=== PATIENT | male | born 1955 | race Caucasian/White ===

== ENCOUNTER → 2017-11-10 | Outpatient (CLI) | payer BC ==
[2017-11-10 12:13] LABS: HCT 43.8 % (39.0-53.0); HGB 14.3 gm/dL (13.0-17.5); MCH 30.3 pg (25.0-35.0); MCHC 32.6 g/dL (31.0-37.0); Mean Platelet Volume 7.3; Platelet Count 231 k/uL (150-450); RBC 4.71 m/uL (4.30-5.90); RDW 13.4 % (11.5-15.5); WBC 5.2 k/uL (3.8-10.6)
[2017-11-10 12:27] LABS: Potassium 4.9 mmol/L (3.5-5.1)
== END | disposition home or self-care (01) ==
LOC: LABPAT 11:51
PROVIDERS: ATTEND Internal Medicine Cardiovascular Disease
DX: Z01.812 Encounter for preprocedural laboratory examination (principal); I25.119 Atherosclerotic heart disease of native coronary artery with unspecified angina pectoris; I10 Essential (primary) hypertension
CPT/HCPCS: 36415; 80051; 82565; 84520; 85027

== ENCOUNTER 2017-11-13 10:58 | Day surgery (SDC) | payer BC ==
[~2017-11-13 10:58] MED LIST: ALPRAZolam 0.25 MG TAB PO PRN; ALPRAZolam 0.5 MG TAB PO PRN; ASPIRIN 325 MG TAB PO STA; ATORVASTATIN 80 MG TAB PO STA; NITROGLYCERIN SL TABS 0.4 MG TAB SUBLINGUAL PRN; SODIUM CHLORIDE 0.9% 1,000 ML in EMPTY BAG 1 BAG IV ONE
[2017-11-13] MEDS ORDERED: fentaNYL (PF) 50 MCG/ML 2 ML AMP ONE (13:21)
[2017-11-13] MEDS ORDERED: LIDOCAINE 1% INJ 10MG/ML (20 ML MDV) ONE (13:21)
[2017-11-13] MEDS ORDERED: MIDAZOLAM 2 MG/2 ML VIAL ONE (13:21)
[2017-11-13] MEDS ORDERED: fentaNYL (PF) 50 MCG/ML 2 ML AMP IV ONE (13:27)
[2017-11-13] MEDS ORDERED: MIDAZOLAM 2 MG/2 ML VIAL IV ONE (13:28)
[2017-11-13] MEDS ORDERED: LIDOCAINE 1% INJ 10MG/ML (20 ML MDV) SQ ONE (13:29)
[2017-11-13] MEDS ORDERED: IOPAMIDOL-370 125ML BTL INJ ONE (13:52)
--- NOTE | 2017-11-13 14:43 | CC ---
CARDIAC CATHETERIZATION REPORT Mr. Franco is a 62-year-old gentleman who was seen in the office for the recent onset of exertional chest discomfort. Patient has a prior history of myocardial infarction and stent to the circumflex coronary artery about 14 years ago. The patient, in view of the new onset of exertional chest discomfort with mild activities, was recommended to have a cardiac catheterization to rule out any significant coronary progression in the coronary artery disease. PROCEDURE: The right groin was prepped and draped in the usual manner and the skin was infiltrated with 2% Xylocaine. The right femoral artery was entered using Seldinger technique a #6- Lao sheath was placed in. Selective coronary angiography was then performed in multiple projections and the left ventricular pressures were obtained patient. The patient tolerated the procedure well. Sheath was removed and good hemostasis was achieved with the use of Angio-Seal. SELECTIVE CORONARY ANGIOGRAPHY: Left main coronary artery is normal and patent. LAD is a calcified. Mid LAD has a significant stenosis of about 85-90%. The LAD is calcified. Circumflex coronary artery has a prior stent placement. There is about 50% stenosis in mid circumflex coronary artery. Right coronary artery is diffusely diseased and the distal right coronary artery before its bifurcation has a 90% stenosis. Left ventricular end-diastolic pressure is 16 mmHg prior to angiography. No gradient is noted across the aortic valve. FINAL IMPRESSION: This study reveals a significant coronary artery disease. The films were reviewed with Dr. Lopez. We will consider atherectomy of the LAD in view that it is a quite calcified vessel and stent to the right coronary artery and possible FFR of the circumflex. MMODL / IJN: [id number] /
[2017-11-13] MEDS ORDERED: RX INFO: IV CONTRAST WAS GIVEN 1 EACH MISC MISCELLANE PRN (14:45)
[2017-11-13] MEDS: SODIUM CHLORIDE 0.9% 1,000 ML IV SCH (15:02)
[2017-11-13 16:43] LABS: Glucose,Whole Blood 117 mg/dL (75-99)
[2017-11-14] MEDS: ASPIRIN 81 MG PO SCH (06:35)
[2017-11-14] MEDS: ATORVASTATIN 80 MG TAB PO SCH (06:35)
[2017-11-14] MEDS: LISINOPRIL 10 MG TAB PO SCH (06:35)
[2017-11-14] MEDS: SODIUM CHLORIDE 0.9% 1,000 ML IV SCH ×2 (06:35→12:45)
[2017-11-14] MEDS: ATENOLOL 25 MG TAB PO SCH (06:35)
[2017-11-14] MEDS ORDERED: IV FLUID CONTINUATION 600 ML IV ONE (09:58)
[2017-11-14] MEDS ORDERED: MIDAZOLAM 2 MG/2 ML VIAL IVP ONE ×2 (09:58→10:12)
[2017-11-14] MEDS ORDERED: LIDOCAINE 1% INJ 10MG/ML (20 ML MDV) SQ ONE (10:08)
[2017-11-14] MEDS ORDERED: BIVALIRUDIN BOLUS 250 MG/50 ML IV ONE (10:14)
[2017-11-14] MEDS ORDERED: BIVALIRUDIN 250 MG in SODIUM CHLORIDE 0.9% 35 ML IV ONE (10:14)
[2017-11-14] MEDS: NITROGLYCERIN 1000MCG/10ML SYRINGE INTRACORON ONE ×4 (10:39→11:45)
[2017-11-14] MEDS: fentaNYL (PF) 50 MCG/ML 2 ML AMP IV ONE ×3 (10:40→11:49)
[2017-11-14] MEDS ORDERED: TICAGRELOR 90 MG TAB PO ONE (10:42)
[2017-11-14] MEDS ORDERED: IOPAMIDOL-370 125ML BTL INJ ONE (10:45)
[2017-11-14] MEDS ORDERED: BIVALIRUDIN 250 MG in SODIUM CHLORIDE 0.9% 50 ML IV ONE (10:56)
[2017-11-14] MEDS ORDERED: IOPAMIDOL-370 100ML BTL INJ ONE (11:28)
[2017-11-14] MEDS ORDERED: IOPAMIDOL-370 50ML BTL INJ ONE (11:49)
[2017-11-14] MEDS ORDERED: MAG HYDROX/AL HYDROX/SIMETH 30 ML CUP PO PRN (11:59)
[2017-11-14] MEDS ORDERED: ATROPINE SULFATE 0.1 MG/ML 10ML SYRINGE IV PRN (11:59)
[2017-11-14] MEDS ORDERED: NITROGLYCERIN SL TABS 0.4 MG TAB SUBLINGUAL PRN (11:59)
[2017-11-14] MEDS ORDERED: ZOLPIDEM 5 MG TAB PO PRN (11:59)
[2017-11-14] MEDS ORDERED: RX INFO: IV CONTRAST WAS GIVEN 1 EACH MISC MISCELLANE PRN (11:59)
--- NOTE | 2017-11-14 13:26 | PTCA ---
PERCUTANEOUSTRANS CORORONARY ANGIOGRAPHY DATE OF SERVICE: October 2017. PERFORMING PHYSICIAN: Deondre Lopez MD, business risk analyst. PROCEDURE PERFORMED: 1. Atherectomy of the proximal left anterior descending artery using the orbital atherectomy device "CSI". 2. Successful stenting of the proximal LAD using 3.0 x 18 mm Xience ALEXA with good angiographic results and reduction of stenosis from 95% to 0% with TORSTEN-3 flow. 3. Successful stenting of the distal right coronary artery using 3.0 x 12 mm Xience ALEXA with good angiographic results. 4. An attempted FFR and IVUS of the left circumflex coronary artery. INDICATION: This is a pleasant 62-year-old gentleman who sees Dr. Magy Basurto as an outpatient who was experiencing symptoms of chest discomfort concerning for angina. Heart catheterization was performed yesterday and that revealed severe 2 vessel coronary artery disease involving the proximal LAD and distal RCA with intermediate disease involving the left circumflex. The decision was made towards percutaneous coronary intervention. APPROACH: Right common femoral artery. COMPLICATION: None. LEVEL OF SEDATION: Moderate with sedation length of 1 hour and 44 minutes. PROCEDURE DESCRIPTION: After obtaining an informed consent, the patient was brought to cardiac cath lab manager. The right common femoral artery was cannulated using micropuncture technique, the micropuncture wire passed easily then I placed a 6-Japanese sheath in the right common femoral artery. After that, I did selective right common femoral artery angiogram. Subsequently I did engage the left main using JL4 guide. I did wire the LAD using a whisper wire. Then I did change my wire into ViperWire using a Super Cross catheter. After that I did atherectomy of the LAD using the orbital atherectomy device where I did 2 runs of low speed. Subsequently, each run was 25 seconds. Subsequently I did balloon angioplasty using 3.0 x 15 mm balloon before I deployed 3.0 x 18 mm Xience ALEXA where the stent was positioned under fluoroscopy guidance and deployed under its nominal pressure. The following angiogram showed good angiographic results. For the RCA, I did engage the RCA using a JR4 guide and the wire of the RCA using a whisper wire. After that, I did ballooning using 2.5 x 12 mm balloon before I deployed 3.0 x 12 mm another Xience ALEXA where the stent was positioned under fluoroscopy guidance and deployed under its nominal pressure. The following angiogram showed good angiographic results. I did attempt doing an FFR of the left circumflex, but the FFR wire will not make the turn because of the angulation of the left circumflex. I did wire the left circumflex using a whisper wire, but I was unable to advance the IVUS catheter to the left circumflex. Because of that, I decided to stop. POSTPROCEDURE MANAGEMENT: 1. Dual antiplatelet therapy. 2. Risk factors modifications. 3. Follow up with the patient. MMODL / IJN: [id number] /
[2017-11-14 14:03] VITALS: BMI 31.3
--- NOTE | 2017-11-14 14:11 | LTR ---
November 13, 2017 Re: Salvador Katherin Dear Dr. Perdomo: Mr. Katherin Franco underwent successful stenting of the LAD and RCA with good angiographic results and without any complication. Thank you for allowing us to participate in his care and please do not hesitate to call if you have any question or concern. Sincerely, MD JAMAAL Cabrera / ROGEN: [id number] /
[2017-11-14] MEDS: TICAGRELOR 90 MG TAB PO SCH (20:49)
[2017-11-14] MEDS ORDERED: HYDROcodone/APAP 5-325MG 1 EACH TAB PO PRN (21:07)
[2017-11-15 06:19] LABS: Basophils % (A) 0 %; Eosinophils # (A) 0.2 k/uL (0-0.7); Eosinophils % (A) 4 %; HGB 12.8 gm/dL (13.0-17.5); Lymphocytes # (A) 1.2 k/uL (1.0-4.8); Lymphocytes % (A) 21 %; MCH 29.5 pg (25.0-35.0); MCHC 31.3 g/dL (31.0-37.0); MCV 94.3 fL (80.0-100.0); Mean Platelet Volume 6.6; Monocytes # (A) 0.4 k/uL (0-1.0); Monocytes % (A) 7 %; Neutrophils # (A) 3.9 k/uL (1.3-7.7); Neutrophils % (A) 67 %; Platelet Count 193 k/uL (150-450); RBC 4.35 m/uL (4.30-5.90); RDW 13.6 % (11.5-15.5); WBC 5.8 k/uL (3.8-10.6)
[2017-11-15 06:31] LABS: Anion Gap 7 mmol/L; Blood Urea Nitrogen 19 mg/dL (9-20); Calcium 8.7 mg/dL (8.4-10.2); Carbon Dioxide 25 mmol/L (22-30); Chloride 107 mmol/L (98-107); Glucose 105 mg/dL (74-99); Potassium 4.4 mmol/L (3.5-5.1); Sodium 139 mmol/L (137-145)
[2017-11-15] MEDS: SODIUM CHLORIDE 0.9% 1,000 ML IV SCH (07:12)
[2017-11-15] MEDS: ATENOLOL 25 MG TAB PO SCH (08:27)
[2017-11-15] MEDS: LISINOPRIL 10 MG TAB PO SCH (08:27)
[2017-11-15] MEDS: ATORVASTATIN 80 MG TAB PO SCH (08:27)
[2017-11-15] MEDS: ASPIRIN 81 MG PO SCH (08:27)
[2017-11-15] MEDS: TICAGRELOR 90 MG TAB PO SCH (08:27)
[2017-11-15 08:30] VITALS: RESP 16; TEMP 97.6
[2017-11-15] MEDS ORDERED: EZETIMIBE 10 MG TAB PO SCH (10:00)
[2017-11-15 11:41] VITALS: BP 114/76; PULSE 65
--- NOTE | 2017-11-15 12:12 | P.PN ---
Subjective Progress Note Date: 11/15/17 Discharge note This is a pleasant 62-year-old gentleman who was brought to the hospital to undergo cardiac catheterization. He presented to the office with symptoms of exertional chest discomfort. He has prior history of myocardial infarction and stent to the circumflex approximately 14 years ago, hypertension , hyperlipidemia. He underwent a cardiac catheterization by Dr. VC Basurto which revealed significant coronary artery disease, subsequent to that Dr. Marshall was consulted to consider arthrectomy of the LAD and stenting of the RCA with possible FFR of the circumflex. Arthrectomy was performed as well as stenting of the LAD and RCA, attempted FFR an DEVON of the left circumflex was also made. Patient was seen and examined this morning, feels well, he's been up ambulating without any difficulty. Denies any chest discomfort in his breathing overall is stable. EKG from this morning shows a normal sinus rhythm with no changes from post-PCI. Patient will be discharged home today. He will follow-up with Dr. VC Basurto in the office in one week. Discharge medications include aspirin 81 mg daily, atenolol 25 mg daily, Lipitor 80 mg daily, Zantac 10 mg daily, Zestril 10 mg daily, Brilinta 90 mg one tablet by mouth twice a day and sublingual nitroglycerin as needed for chest pain. Objective - Vital Signs Vital signs: Vital Signs Temp 97.6 F 11/15/17 08:20 Pulse 65 11/15/17 11:20 Resp 16 11/15/17 11:20 BP 114/76 11/15/17 11:20 Pulse Ox 99 11/15/17 11:20 Intake & Output 11/14/17 11/15/17 11/15/17 18:59 06:59 18:59 Intake Total 1365 Output Total 850 Balance 515 Weight 101.8 kg 102.4 kg Intake: IV 1025 Sodium Chloride 0.9% 1, 600 000 ml @ 75 mls/hr IV . [id number] [facility] Rx#:[id number] Oral 340 Output: Urine 850 Other: Voiding Method Toilet Toilet Toilet Urinal Urinal Urinal # Voids 2 1 2 - Exam PHYSICAL EXAMINATION: GENERAL: 62-year-old gentleman in no acute distress at the time of my examination HEENT: Head is atraumatic, normocephalic. Pupils equal, round. Sclera anicteric. Conjunctiva are clear. Mucous membranes of the mouth are moist. Neck is supple. There is no elevated jugular venous pressure. No carotid bruit is heard. HEART EXAMINATION: [eart S1, S2 normal. No murmur or gallop heard.] CHEST EXAMINATION:[Lungs are clear to auscultation and precussion. No chest wall tenderness is noted on palpation or with deep breathing.] ABDOMEN: [Soft, nontender. Bowel sounds are heard. No organomegaly noted] EXTREMITIES:[2+ peripheral pulses with no evidence of peripheral edema and no calf tenderness noted] right groin soft, no evidence of any hematoma NEUROLOGIC [atient is awake, alert and oriented ?-3.] . - Labs CBC & Chem 7: 11/15/17 05:39 11/15/17 05:39 Labs: Abnormal Lab Results - Last 24 Hours (Table) 11/15/17 11/15/17 Range/Units 05:39 05:39 Hgb 12.8 L (13.0-17.5) gm/dL Glucose 105 H (74-99) mg/dL Assessment and Plan Plan: Assessment and plan #1 status post arthrectomy and stenting of the LAD, status post stenting of the RCA, status post attempted FFR of the circumflex. #2 hypertension #3 hyperlipidemia #4 prior history of NH with stent placement Plan Patient may be able to be discharged home today. We'll make him a follow-up appointment to see Dr. VC Basurto in the office post discharge. Discharge medications as as dictated in initial part of discharge summary. DNP note has been reviewed, I agree with a documented findings and plan of care. Patient was seen and examined.
== END 2017-11-15 12:46 | disposition home or self-care (01) ==
LOC: CATHCVL 10:58 → 6SEL 13:48 → CATHCVL 11-15 12:46
PROVIDERS: ATTEND Internal Medicine Cardiovascular Disease
DX: I25.10 Atherosclerotic heart disease of native coronary artery without angina pectoris (principal); Z95.5 Presence of coronary angioplasty implant and graft; I05.9 Rheumatic mitral valve disease, unspecified; I12.9 Hypertensive chronic kidney disease with stage 1 through stage 4 chronic kidney disease, or unspecified chronic kidney disease; N18.3 Chronic kidney disease, stage 3 (moderate); E78.5 Hyperlipidemia, unspecified; I25.2 Old myocardial infarction; F17.210 Nicotine dependence, cigarettes, uncomplicated; Z79.82 Long term (current) use of aspirin; Z79.899 Other long term (current) drug therapy
CPT/HCPCS: 93458; 92924; 80048; 85025; C9600; C1760 ×2; C1769 ×6; C1887 ×4; C1725 ×2; C1894 ×2; C1753; C1874; C1714; J2250 ×2; J2001 ×2; J3010 ×2; J0583; Q9967 ×4

== ENCOUNTER → 2018-01-12 | Outpatient (CLI) | payer BC ==
[2018-01-12 13:27] LABS: HCT 38.9 % (39.0-53.0); MCHC 33.4 g/dL (31.0-37.0); MCV 92.9 fL (80.0-100.0); Mean Platelet Volume 6.9; Platelet Count 226 k/uL (150-450); RBC 4.19 m/uL (4.30-5.90); WBC 6.4 k/uL (3.8-10.6)
[2018-01-12 13:35] LABS: Potassium 4.8 mmol/L (3.5-5.1)
== END | disposition home or self-care (01) ==
LOC: LABPAT 12:50
PROVIDERS: ATTEND Internal Medicine Interventional Cardiology
DX: Z01.812 Encounter for preprocedural laboratory examination (principal); I05.9 Rheumatic mitral valve disease, unspecified; I10 Essential (primary) hypertension; I25.10 Atherosclerotic heart disease of native coronary artery without angina pectoris
CPT/HCPCS: 36415; 80051; 82565; 84520; 85027

== ENCOUNTER 2018-01-26 06:32 | Day surgery (SDC) | payer BC ==
[2018-01-20 14:24] VITALS: BMI 30.2
[2018-01-26 07:13] LABS: Basophils % (A) 1 %; Eosinophils # (A) 0.4 k/uL (0-0.7); Eosinophils % (A) 6 %; HCT 41.3 % (39.0-53.0); HGB 13.7 gm/dL (13.0-17.5); Lymphocytes # (A) 1.5 k/uL (1.0-4.8); Lymphocytes % (A) 28 %; MCH 30.6 pg (25.0-35.0); MCHC 33.1 g/dL (31.0-37.0); MCV 92.3 fL (80.0-100.0); Mean Platelet Volume 6.8; Monocytes # (A) 0.4 k/uL (0-1.0); Monocytes % (A) 6 %; Neutrophils # (A) 3.2 k/uL (1.3-7.7); Neutrophils % (A) 58 %; Platelet Count 229 k/uL (150-450); RBC 4.48 m/uL (4.30-5.90); RDW 13.1 % (11.5-15.5); WBC 5.6 k/uL (3.8-10.6)
[2018-01-26 07:22] LABS: Anion Gap 9 mmol/L; Blood Urea Nitrogen 17 mg/dL (9-20); Calcium 9.4 mg/dL (8.4-10.2); Carbon Dioxide 25 mmol/L (22-30); Chloride 107 mmol/L (98-107); Glucose 114 mg/dL (74-99); Potassium 4.6 mmol/L (3.5-5.1); Sodium 141 mmol/L (137-145)
[2018-01-26] MEDS ORDERED: LIDOCAINE 1% INJ 10MG/ML (20 ML MDV) SQ ONE (07:51)
[2018-01-26] MEDS ORDERED: BIVALIRUDIN BOLUS 250 MG/50 ML IV ONE (07:59)
[2018-01-26] MEDS ORDERED: BIVALIRUDIN 250 MG in SODIUM CHLORIDE 0.9% 50 ML IV ONE (08:01)
[2018-01-26] MEDS ORDERED: NITROGLYCERIN 1000MCG/10ML SYRINGE INTRACORON ONE ×2 (08:04→08:09)
[2018-01-26] MEDS ORDERED: IOPAMIDOL-370 125ML BTL INJ ONE (08:20)
[2018-01-26] MEDS ORDERED: NITROGLYCERIN SL TABS 0.4 MG TAB SUBLINGUAL PRN ×2 (08:31)
[2018-01-26] MEDS ORDERED: MAG HYDROX/AL HYDROX/SIMETH 30 ML CUP PO PRN (08:31)
[2018-01-26] MEDS ORDERED: ATROPINE SULFATE 0.1 MG/ML 10ML SYRINGE IV PRN (08:31)
[2018-01-26] MEDS ORDERED: ZOLPIDEM 5 MG TAB PO PRN (08:31)
[2018-01-26] MEDS ORDERED: RX INFO: IV CONTRAST WAS GIVEN 1 EACH MISC MISCELLANE PRN (08:31)
[2018-01-26] MEDS ORDERED: SODIUM CHLORIDE 0.9% 1,000 ML IV SCH (08:45)
--- NOTE | 2018-01-26 08:54 | LTR ---
DATE OF SERVICE: January 26, 2018. RE: Katherin Franco Dear Dr. Perdomo; Mr. Katherin Franco underwent successful stenting of the left circumflex with good angiographic results and without any complication. Thank you for allowing us to participate in his care and please do not hesitate to call if you have any question or concern. Sincerely, MD JAMAAL Cabrera / ROGEN: [id number] /
--- NOTE | 2018-01-26 09:05 | CC ---
CARDIAC CATHETERIZATION REPORT CARDIAC CATHETERIZATION AND PERCUTANEOUS CORONARY INTERVENTION DATE OF SERVICE: January 26, 2018 PERFORMING PHYSICIAN: Deondre Lopez MD, sleep technician. PROCEDURE PERFORMED: 1. Selective right and left coronary angiogram. 2. Left heart catheterization. 3. Successful stenting of the proximal left circumflex using 2.75 x 18 mm Xience ALEXA which was postdilated using 3 mm NC balloon with good angiographic results and reduction of stenosis from 80% to 0%. INDICATION: This is a pleasant 62-year-old gentleman who sees Dr. Magy Basurto in the office as an outpatient with known history of coronary artery disease and prior stenting of the RCA and LAD, who is known to have severe disease involving the left circumflex and was brought today to undergo stenting of the left circumflex. APPROACH: Right common femoral artery. COMPLICATION: None. LEVEL OF SEDATION: Moderate with sedation length of 35 minutes. PROCEDURE DESCRIPTION: After obtaining an informed consent, the patient was brought to cardiac rn cardiac cath. The right common femoral artery was cannulated using micropuncture technique. Then I placed a 6-[place] sheath in the right common femoral artery. After that I did selective right and left coronary angiogram. The selective right coronary angiogram was performed using an XB3.5 guide, which was used to fix the left circumflex. Selective right coronary angiogram was performed using JR4 guide. Left heart catheterization was performed using a 6-[place]er pigtail catheter. The procedure was completed without any complication. SELECTIVE CORONARY ANGIOGRAM: 1. The right coronary artery is a large caliber vessel and is a dominant vessel. The proximal RCA has mild disease only in the range of 40%. The RCA stent in the midportion is patent and the . The RCA distally has mild disease only and bifurcates into PDA and PLV branches, both appeared to be angiographically normal. 2. The left main is angiographically normal. It bifurcates into left circumflex and left anterior descending artery. 3. The left circumflex is a large caliber vessel. It is a nondominant vessel. The proximal circumflex has a tight lesion appeared to be in the range of 80%. The mid circumflex and distal circumflex appeared to be angiographically normal. 4. The LAD: The proximal LAD is stented and the stent is patent. The mid LAD has mild disease only. The LAD distally appeared to be angiographically normal. PCI OF THE LEFT CIRCUMFLEX: Anticoagulation was initiated using Angiomax. Subsequently I did wire the left circumflex using a Whisper wire. I did PTCA ballooning using 2.5 x 12 mm balloon before I deployed 2.75 x 18 mm Xience ALEXA where the stent was positioned under fluoroscopy guidance and deployed under 12 atmospheres for 20 seconds. I post dilated the stent using 2.75 mm NC balloon. The procedure was completed without any complication. HEMODYNAMICS: The left ventricular end-diastolic pressure was 12 mmHg and no gradient was identified across the aortic valve. CONCLUSION: 1. Successful stenting of the proximal left circumflex using 2.75 x 18 mm Xience ALEXA with good angiographic results. 2. Patent stent in the mid right coronary artery as well as proximal left anterior descending artery. POSTPROCEDURE MANAGEMENT: Maximize medical treatment and follow up with the patient. JAMAAL / ROGEN: [id number] /
[2018-01-26] MEDS ORDERED: fentaNYL (PF) 50 MCG/ML 2 ML AMP IVP PRN (12:41)
[2018-01-26] MEDS ORDERED: fentaNYL (PF) 50 MCG/ML 2 ML AMP ONE (12:43)
[2018-01-26] MEDS: LISINOPRIL 10 MG TAB PO SCH (14:54)
[2018-01-26] MEDS ORDERED: HYDROmorphone 1 MG/ML 1 ML SYRINGE IVP PRN (17:19)
[2018-01-26] MEDS: TICAGRELOR 90 MG TAB PO SCH (20:23)
[2018-01-26 20:30] VITALS: RESP 16; TEMP 97.2
[2018-01-26] MEDS ORDERED: EZETIMIBE 10 MG TAB PO SCH (21:00)
[2018-01-27 06:46] LABS: Anion Gap 8 mmol/L; Blood Urea Nitrogen 16 mg/dL (9-20); Calcium 9.1 mg/dL (8.4-10.2); Carbon Dioxide 21 mmol/L (22-30); Chloride 110 mmol/L (98-107); Glucose 101 mg/dL (74-99); Sodium 139 mmol/L (137-145)
[2018-01-27 06:53] LABS: Potassium 4.9 mmol/L (3.5-5.1)
[2018-01-27 07:05] LABS: HCT 44.1 % (39.0-53.0); HGB 13.9 gm/dL (13.0-17.5); Hypochromasia Slight; MCH 30.6 pg (25.0-35.0); MCHC 31.7 g/dL (31.0-37.0); MCV 96.8 fL (80.0-100.0); Mean Platelet Volume 6.9; Platelet Count 239 k/uL (150-450); RBC 4.55 m/uL (4.30-5.90); RDW 13.2 % (11.5-15.5); WBC 6.1 k/uL (3.8-10.6)
[2018-01-27 07:57] LABS: Eosinophils # (M) 0.12 k/uL (0-0.7); Lymphocytes # (M) 1.53 k/uL (1.0-4.8); Monocytes # (M) 0.31 k/uL (0-1.0); Neutrophils # (M) 4.15 k/uL (1.3-7.7); Neutrophils % (M) 68 %; Nucleated Red Blood Cells 0 /100 WBC (0-0); Total Cells Counted 100
--- NOTE | 2018-01-27 08:57 | DS ---
DISCHARGE SUMMARY ADMISSION DATE: January 26, 2018. DISCHARGE DATE: January 27, 2018 BRIEF HISTORY: This is a 62-year-old gentleman who was admitted to the hospital and underwent successful stenting of the left circumflex with a groin approach. On follow up with him today, he is doing good and he is asymptomatic. The right groin is soft and nontender and without any bruises. The patient is going to be discharged home on dual anti-platelet therapy and he will follow up with Dr. Basurto in the office as an output. MMODL / IJN: [id number] /
[2018-01-27] MEDS ORDERED: ATENOLOL 25 MG TAB PO SCH (09:00)
[2018-01-27] MEDS ORDERED: ASPIRIN 81 MG PO SCH (09:00)
[2018-01-27 09:21] VITALS: BP 122/78; PULSE 81
[2018-01-27] MEDS: LISINOPRIL 10 MG TAB PO SCH (09:21)
[2018-01-27] MEDS: TICAGRELOR 90 MG TAB PO SCH (09:21)
[2018-01-27] MEDS ORDERED: ATORVASTATIN 80 MG TAB PO SCH (21:00)
== END 2018-01-27 09:44 | disposition home or self-care (01) ==
LOC: CATHCVL 06:32 → 3SCARD 13:36 → CATHCVL 01-27 09:44
PROVIDERS: ATTEND Internal Medicine Interventional Cardiology
DX: I25.110 Atherosclerotic heart disease of native coronary artery with unstable angina pectoris (principal); Z95.5 Presence of coronary angioplasty implant and graft; I12.9 Hypertensive chronic kidney disease with stage 1 through stage 4 chronic kidney disease, or unspecified chronic kidney disease; N18.3 Chronic kidney disease, stage 3 (moderate); E78.5 Hyperlipidemia, unspecified; E78.00 Pure hypercholesterolemia, unspecified; I05.9 Rheumatic mitral valve disease, unspecified; Z72.0 Tobacco use; Z79.82 Long term (current) use of aspirin; Z79.899 Other long term (current) drug therapy; Z79.02 Long term (current) use of antithrombotics/antiplatelets
CPT/HCPCS: 93458; 80048 ×2; 85025 ×2; C9600; C1760; C1769 ×4; C1725; C1887; C1894; C1874; J2001; J3010; J0583; Q9967

== ENCOUNTER 2019-02-03 18:34 | Emergency (ER) | payer BC, MEDICARE ==
[2019-02-03 18:38] VITALS: PULSE 83; RESP 16; TEMP 98.1
[2019-02-03] MEDS ORDERED: PROPARACAINE 0.5% OPHTH DROPS 15 ML BTL RIGHT EYE STA (18:50)
--- NOTE | 2019-02-03 18:59 | ED ---
Eye Problem HPI - General Chief complaint: Eye Problems Stated complaint: reaction from an eye injection Time Seen by Provider: 02/03/19 18:40 Source: patient, RN notes reviewed Mode of arrival: ambulatory Limitations: no limitations - History of Present Illness Initial comments: 63-year-old male presents emergency Department chief complaint of right eye pain. Patient states he had a right eye injection by Dr. Balderas at Dr. Haney's office today. Patient states he has coarse disease. Patient had injections in the past but is the worst pain she's ever experienced. He states he normally has some irritation. He states it's all superficial pain states that he feels irritation on the surface feels that it's very scratchy he states his vision is unchanged from his normal baseline and normally has blurry. Patient denies any other trauma. He states is slightly injected, tearing - Related Data Home Medications Medication Instructions Recorded Confirmed Aspirin [Adult Low Dose Aspirin EC] 81 mg PO DAILY 01/07/17 01/26/18 Atenolol [Tenormin] 25 mg PO DAILY 01/07/17 01/26/18 Quinapril HCl 10 mg PO DAILY 01/08/17 01/26/18 Atorvastatin [Lipitor] 80 mg PO HS 01/26/18 01/26/18 Ezetimibe [Zetia] 10 mg PO HS 01/26/18 01/26/18 Previous Rx's Medication Instructions Recorded Nitroglycerin Sl Tabs [Nitrostat] 0.4 mg SUBLINGUAL Q5M PRN #25 tab 11/15/17 Ticagrelor [Brilinta] 90 mg PO BID #60 tab 11/15/17 Allergies Allergy/AdvReac Type Severity Reaction Status Date / Time No Known Allergies Allergy Verified 02/03/19 18:38 Review of Systems ROS Statement: Those systems with pertinent positive or pertinent negative responses have been documented in the HPI. ROS Other: All systems not noted in ROS Statement are negative. Past Medical History Past Medical History: GERD/Reflux, Hyperlipidemia, Hypertension, Osteoarthritis (OA), Vascular Disorder Additional Past Medical History / Comment(s): hx. kidney problems in past- nothing current per pt. , kidney stones, anemia, gout, worsening heartburn that goes up into chest. HEART CHAT 11/13 BLOCKAGES LAD, RCA AND CX- STENTS PLANNED 11/14 Last Myocardial Infarction Date:: 2007 History of Any Multi-Drug Resistant Organisms: None Reported Past Surgical History: Heart Catheterization With Stent, Joint Replacement, Orthopedic Surgery, Tonsillectomy Additional Past Surgical History / Comment(s): right knee arthroplasty, sinus surgery, left knee reconstruction, colonoscopy. CARDIAC STENT 2003 Past Anesthesia/Blood Transfusion Reactions: No Reported Reaction Date of Last Stent Placement:: 2006 Past Psychological History: No Psychological Hx Reported Smoking Status: Never smoker Past Alcohol Use History: None Reported Past Drug Use History: None Reported - Past Family History Brother(s) Family Medical History: Cancer Father Family Medical History: Coronary Artery Disease (CAD) Mother Family Medical History: Cancer General Exam Limitations: no limitations General appearance: alert, in no apparent distress Head exam: Present: atraumatic, normocephalic, normal inspection Eye exam: Present: normal appearance, PERRL, EOMI, conjunctival injection (Moderate right). Absent: scleral icterus, periorbital swelling ENT exam: Present: normal exam, mucous membranes moist Neck exam: Present: normal inspection, full ROM. Absent: tenderness, meningismus, lymphadenopathy Respiratory exam: Present: normal lung sounds bilaterally. Absent: respiratory distress, wheezes, rales, rhonchi, stridor Cardiovascular Exam: Present: regular rate, normal rhythm, normal heart sounds. Absent: systolic murmur, diastolic murmur, rubs, gallop, clicks Neurological exam: Present: alert, oriented X3, CN II-XII intact Skin exam: Present: warm, dry, intact, normal color. Absent: rash Course Vital Signs 02/03/19 02/03/19 02/03/19 18:36 18:58 19:00 Temperature 98.1 F Pulse Rate 83 Respiratory 16 Rate Blood Pressure 152/89 157/88 O2 Sat by Pulse 96 93 L 97 Oximetry 02/03/19 19:10 Temperature Pulse Rate Respiratory Rate Blood Pressure 139/84 O2 Sat by Pulse 93 L Oximetry Medical Decision Making - Medical Decision Making Multiple attempts to reach Dr. Haney was unsuccessful. I did contact on-call photographic developer and printer Dr. See who advised the patient take ibuprofen, cool compresses and contact Dr. moya's office for seen in the morning his return to emergency from for any worsening symptoms. This appears to be related to a superficial abrasion injury as proparacaine alleviated all symptoms. Patiently advised ibuprofen now, discharged without codeine and return parameters were discussed. Disposition Clinical Impression: Pain, eye, right Disposition: HOME SELF-CARE Condition: Stable Instructions (If sedation given, give patient instructions): Eye Pain (ED) Additional Instructions: Contact Dr. Haney office first thing in the morning. Please return to the Emergency Department if symptoms worsen or any other concerns. Is patient prescribed a controlled substance at d/c from ED?: No Referrals: Mook Perdomo DO [Primary Care Provider] - 1-2 days Time of Disposition: 19:42
[2019-02-03 19:13] VITALS: BP 139/84
[2019-02-03] MEDS ORDERED: IBUPROFEN 600 MG TAB PO STA (19:42)
[2019-02-03] MEDS ORDERED: ACET/COD 300 MG/30 MG STARTER PACK 6 TAB BTL PO STA (19:42)
== END 2019-02-03 19:54 | disposition home or self-care (01) ==
LOC: EC 18:34
DX: H57.11 Ocular pain, right eye (principal); I10 Essential (primary) hypertension; E78.5 Hyperlipidemia, unspecified; M19.90 Unspecified osteoarthritis, unspecified site; M10.9 Gout, unspecified; Z95.5 Presence of coronary angioplasty implant and graft; Z96.651 Presence of right artificial knee joint; Z79.82 Long term (current) use of aspirin; Z79.899 Other long term (current) drug therapy
CPT/HCPCS: 99283

== ENCOUNTER → 2021-02-05 | Outpatient (CLI) | payer MEDICARE ==
--- NOTE | 2021-02-05 08:00 | US ---
EXAMINATION TYPE: US kidneys/renal and bladder DATE OF EXAM: 02/05/2021 COMPARISON: 01/11/2015 CLINICAL HISTORY: 65-year-old male N18.3 stage 3 chronic kidney disease. TECHNIQUE: Multiple sonographic images of the kidneys and bladder are obtained. FINDINGS: EXAM MEASUREMENTS: Right Kidney: 10.3x4.9x5.8 cm Left Kidney: 13.1x6.1x5.9 cm Right Kidney: Inf cyst = 1.4x1.6x1.3cm, Sup cyst= 1.5x1.1x1.5cm Left Kidney: cyst = 9.1x8.8x7.1cm (versus 7.9 cm in 2015) Bladder: wnl Bilateral Jets seen: Yes IMPRESSION: 1. No hydronephrosis. 2. A couple cysts in the right kidney measuring up to 1.6 cm and a dominant 9.1 cm cyst in the left k idney (versus 7.9 cm in 2015).
== END | disposition home or self-care (01) ==
LOC: RADUSWWP 07:28
PROVIDERS: ATTEND Internal Medicine
DX: N18.31 Chronic kidney disease, stage 3a (principal); N28.1 Cyst of kidney, acquired
CPT/HCPCS: 76770

== ENCOUNTER 2023-10-22 12:20 | Day surgery (SDC) | payer MEDICARE ==
[~2023-10-22 12:20] MED LIST changes: -ALPRAZolam 0.25 MG TAB PO PRN; -ALPRAZolam 0.5 MG TAB PO PRN; -ASPIRIN 325 MG TAB PO STA; -ATORVASTATIN 80 MG TAB PO STA; +LACTATED RINGERS 1,000 ML BAG ONE; -NITROGLYCERIN SL TABS 0.4 MG TAB SUBLINGUAL PRN; -SODIUM CHLORIDE 0.9% 1,000 ML in EMPTY BAG 1 BAG IV ONE
[2023-10-22] MEDS ORDERED: PROPOFOL 10 MG/ML 20 ML VIAL IV ONE (12:21)
--- NOTE | 2023-11-14 15:12 | P.PCN ---
Date of Procedure: 10/22/23 Procedure(s) Performed: This is an addendum to the procedure that was performed on 10/22/2023. Procedure performed colonoscopy with snare polypectomy Procedure: The scope was advanced all the way into the cecum. Careful examination was performed as the scope was gradually being withdrawn. There was a 5 mm ascending colon polyp was removed by cold snare polypectomy. There was a 1 cm polyp in the sigmoid colon removed by snare polypectomy. Scattered sigmoid diverticulosis seen.
== END 2023-10-22 13:15 | disposition home or self-care (01) ==
LOC: ORWHC2ENDO 12:20
PROVIDERS: ATTEND Internal Medicine Gastroenterology
DX: D12.2 Benign neoplasm of ascending colon (principal); D12.5 Benign neoplasm of sigmoid colon; I10 Essential (primary) hypertension; E78.5 Hyperlipidemia, unspecified; Z79.899 Other long term (current) drug therapy
CPT/HCPCS: 45380; 88305